=== PATIENT | male | born 1995 | race Caucasian/White ===

== ENCOUNTER 2016-05-19 01:24 | Emergency (ER) | payer BC, MEDICAID ==
[~2016-05-19] VITALS: Ht 177.8 cm; Wt 54.0 kg
[~2016-05-19 01:24] MED LIST: Z.0.NO CURRENT MEDS
[2016-05-19 01:25] VITALS: BP 138/76; PULSE 109; RESP 16; TEMP 98.2; O2SAT 96
[2016-05-19 03:26] LABS: AUTOMATED NEUTROPHIL # 3.7 TH/MM3 (1.8-7.7); BASOPHIL # 0.1 TH/MM3 (0-0.2); BASOPHIL % 0.7 % (0.0-2.0); EOSINOPHIL # 0.4 TH/MM3 (0-0.4); EOSINOPHIL % 5.2 % (0.0-4.0); HEMATOCRIT 42.2 % (39.0-51.0); HEMO FLAGS DIFF FINAL; LYMPH % 37.2 % (9.0-44.0); LYMPHOCYTE # 2.9 TH/MM3 (1.0-4.8); MEAN CELL VOLUME 91.3 FL (80.0-100.0); MEAN CORPUSCULAR HEMOGLOBIN 31.8 PG (27.0-34.0); MEAN CORPUSCULAR HGB CONC 34.8 % (32.0-36.0); MONO % 10.3 % (0.0-8.0); NEUT % 46.6 % (16.0-70.0); PLATELET COUNT 259 TH/MM3 (150-450); RED BLOOD COUNT 4.62 MIL/MM3 (4.50-5.90); RED CELL DISTRIBUTION WIDTH 12.9 % (11.6-17.2); WHITE BLOOD COUNT 7.9 TH/MM3 (4.0-11.0)
--- NOTE | 2016-05-19 03:28 | PD ---
HPI Chief Complaint: Suicide Ideation/Attempt Time Seen by Provider: 03:22 Travel History International Travel<30 days: No Contact w/Intl Traveler<30days: No Traveled to known affect area: No History of Present Illness HPI 20-year-old white male presents to emergency department under [place] act by PD. The patient has been increasingly depressed and has had attempted to hang himself the day before, overdose on alcohol and Klonopin. He presents today because of his persistent depression and suicidal ideation. He is accompanied by his significant other. He was just kicked out of his brother's home where he had been living. He has been staying in his girlfriends car. He denies any toxic ingestions today. He denies any suicide attempts today. He did perform suicide gesture cutting to his left forearm. The patient has a history of substance abuse. He's been taking alcohol, Xanax, cocaine and marijuana. PFSH Past Medical History Narrative Medical Asthma, anxiety, substance abuse Asthma: Yes Anxiety: Yes Diminished Hearing: No Immunizations Current: Yes Tetanus Vaccination: < 5 Years Influenza Vaccination: No Past Surgical History Tympanostomy Tube: Yes Social History Alcohol Use: Yes (occ) Tobacco Use: Yes (1/2 pack week) Substance Use: Yes (pot,xanax,cocaine) Allergies-Medications (Allergen,Severity, Reaction): Coded Allergies: No Known Allergies (Verified , 05/19/16) Reported Meds & Prescriptions Reported Meds & Active Scripts Active Reported No Current Meds (Miscellaneous Medication) Misc 0 Review of Systems Except as stated in HPI: all other systems reviewed are Neg Skin: Positive Other (suicide gesture cutting) Psychiatric: Positive: Anxiety, Depression, Suicidal Ideations, Mood Disorder, Substance Abuse, No: Disorder of Thought, Homicidal Ideation Physical Exam Narrative GENERAL: Well-nourished, well-developed patient. SKIN: Warm and dry. Patient has suicide gesture cutting. He has carved " anyone could help" on his left forearm HEAD: Normocephalic and atraumatic. EYES: No scleral icterus. No injection or drainage. ENT: No nasal drainage noted. Mucous membranes pink. Airway patent. NECK: Supple, trachea midline. Moves head freely without obvious discomfort. CARDIOVASCULAR: Regular rate and rhythm without murmurs, gallops, or rubs. RESPIRATORY: Breath sounds equal bilaterally. No accessory muscle use. GASTROINTESTINAL: Abdomen soft, non-tender, nondistended. EXTREMITIES: No cyanosis or edema. BACK: Nontender without obvious deformity. No CVA tenderness. NEURO: Patient is alert and oriented. no sensorimotor deficits. Nonfocal. Normal speech. PSYCH: No delusions. No auditory or visual hallucinations. Data Data Last Documented VS Vital Signs Date Time Temp Pulse Resp B/P Pulse Ox O2 Delivery O2 Flow Rate FiO2 05/19/16 01:25 98.2 109 16 138/76 96 Room Air Orders Complete Blood Count With Diff (05/19/16 02:45) Comprehensive Metabolic Panel (05/19/16 02:45) Drug Screen, Random Urine (05/19/16 02:45) Alcohol (Ethanol) (05/19/16 02:45) Salicylates (Aspirin) (05/19/16 02:45) Tylenol (Acetaminophen) (05/19/16 02:45) Psych Screen (05/19/16 02:45) Labs Laboratory Tests Test 05/19/16 05/19/16 03:00 03:10 White Blood Count 7.9 TH/MM3 Red Blood Count 4.62 MIL/MM3 Hemoglobin 14.7 GM/DL Hematocrit 42.2 % Mean Corpuscular Volume 91.3 FL Mean Corpuscular Hemoglobin 31.8 PG Mean Corpuscular Hemoglobin 34.8 % Concent Red Cell Distribution Width 12.9 % Platelet Count 259 TH/MM3 Mean Platelet Volume 8.0 FL Neutrophils (%) (Auto) 46.6 % Lymphocytes (%) (Auto) 37.2 % Monocytes (%) (Auto) 10.3 % Eosinophils (%) (Auto) 5.2 % Basophils (%) (Auto) 0.7 % Neutrophils # (Auto) 3.7 TH/MM3 Lymphocytes # (Auto) 2.9 TH/MM3 Monocytes # (Auto) 0.8 TH/MM3 Eosinophils # (Auto) 0.4 TH/MM3 Basophils # (Auto) 0.1 TH/MM3 CBC Comment DIFF FINAL Differential Comment Sodium Level 140 MEQ/L Potassium Level 3.4 MEQ/L Chloride Level 103 MEQ/L Carbon Dioxide Level 29.0 MEQ/L Anion Gap 8 MEQ/L Blood Urea Nitrogen 17 MG/DL Creatinine 1.06 MG/DL Estimat Glomerular Filtration 90 ML/MIN Rate Random Glucose 126 MG/DL Calcium Level 8.9 MG/DL Total Bilirubin 0.7 MG/DL Aspartate Amino Transf 12 U/L (AST/SGOT) Alanine Aminotransferase 17 U/L (ALT/SGPT) Alkaline Phosphatase 99 U/L Total Protein 7.5 GM/DL Albumin 4.3 GM/DL Salicylates Level 3.7 MG/DL Acetaminophen Level LESS THAN 2.0 MCG/ML Ethyl Alcohol Level LESS THAN 3 MG/DL Urine Opiates Screen NEG Urine Barbiturates Screen NEG Urine Amphetamines Screen NEG Urine Benzodiazepines Screen POS Urine Cocaine Screen POS Urine Cannabinoids Screen POS MDM Medical Decision Making Medical Screen Exam Complete: Yes Emergency Medical Condition: Yes Medical Record Reviewed: Yes Interpretation(s) Laboratory Tests Test 05/19/16 05/19/16 03:00 03:10 White Blood Count 7.9 TH/MM3 Red Blood Count 4.62 MIL/MM3 Hemoglobin 14.7 GM/DL Hematocrit 42.2 % Mean Corpuscular Volume 91.3 FL Mean Corpuscular Hemoglobin 31.8 PG Mean Corpuscular Hemoglobin 34.8 % Concent Red Cell Distribution Width 12.9 % Platelet Count 259 TH/MM3 Mean Platelet Volume 8.0 FL Neutrophils (%) (Auto) 46.6 % Lymphocytes (%) (Auto) 37.2 % Monocytes (%) (Auto) 10.3 % Eosinophils (%) (Auto) 5.2 % Basophils (%) (Auto) 0.7 % Neutrophils # (Auto) 3.7 TH/MM3 Lymphocytes # (Auto) 2.9 TH/MM3 Monocytes # (Auto) 0.8 TH/MM3 Eosinophils # (Auto) 0.4 TH/MM3 Basophils # (Auto) 0.1 TH/MM3 CBC Comment DIFF FINAL Differential Comment Sodium Level 140 MEQ/L Potassium Level 3.4 MEQ/L Chloride Level 103 MEQ/L Carbon Dioxide Level 29.0 MEQ/L Anion Gap 8 MEQ/L Blood Urea Nitrogen 17 MG/DL Creatinine 1.06 MG/DL Estimat Glomerular Filtration 90 ML/MIN Rate Random Glucose 126 MG/DL Calcium Level 8.9 MG/DL Total Bilirubin 0.7 MG/DL Aspartate Amino Transf 12 U/L (AST/SGOT) Alanine Aminotransferase 17 U/L (ALT/SGPT) Alkaline Phosphatase 99 U/L Total Protein 7.5 GM/DL Albumin 4.3 GM/DL Salicylates Level 3.7 MG/DL Acetaminophen Level LESS THAN 2.0 MCG/ML Ethyl Alcohol Level LESS THAN 3 MG/DL Urine Opiates Screen NEG Urine Barbiturates Screen NEG Urine Amphetamines Screen NEG Urine Benzodiazepines Screen POS Urine Cocaine Screen POS Urine Cannabinoids Screen POS Differential Diagnosis MDM: High Differential diagnoses: Schizophrenia, schizoaffective disorder, bipolar, anxiety, depression, adjustment reaction, mood disorder NOS, ODD, depressive disorder NOS, dementia, dementia with agitation, psychosis NOS, substance induced mood disorder, intermittent explosive disorder, Asperger syndrome, infection,electrolyte abnormality, malingering. Narrative Course Mental health screening discussed with the patient. Psychiatric screen ordered. Diagnosis Primary Impression: Substance induced mood disorder Condition: Stable Arnaud Garcia May 19, 2016 03:28
[2016-05-19 03:31] LABS: AMPHETAMINE, URINE NEG (NEG); BARBITURATES, URINE NEG (NEG); COCAINE, URINE POS (NEG)
[2016-05-19 03:35] LABS: ALT (GPT) 17 U/L (9-52); ANION GAP 8 MEQ/L (5-15); AST (GOT) 12 U/L (15-39); BLOOD UREA NITROGEN 17 MG/DL (7-18); CHLORIDE 103 MEQ/L (98-107); GLOMERULAR FILTRATION RATE 90 ML/MIN (>89); POTASSIUM 3.4 MEQ/L (3.5-5.1); SODIUM (NA) 140 MEQ/L (136-145)
[2016-05-19 03:37] LABS: ALKALINE PHOSPHATASE 99 U/L (45-117); TOTAL BILIRUBIN ADULT 0.7 MG/DL (0.2-1.0)
[2016-05-19 03:48] LABS: ACETAMINOPHEN LESS THAN 2.0 MCG/ML (10.0-30.0)
[2016-05-19 12:50] VITALS: BP 120/78; PULSE 77; RESP 18; TEMP 98.4; O2SAT 100
[2016-05-19 17:53] VITALS: BP 120/78; PULSE 77; RESP 18; O2SAT 100
== END 2016-05-19 17:55 | disposition home or self-care (01) ==
LOC: NEPA 01:24 → NEPJ 17:55
DX: F14.94 Cocaine use, unspecified with cocaine-induced mood disorder (principal); F13.94 Sedative, hypnotic or anxiolytic use, unspecified with sedative, hypnotic or anxiolytic-induced mood disorder
CPT/HCPCS: 80053; 80307; 80320; 80329; 85025; 99283; G0480

== ENCOUNTER 2016-07-05 22:51 | Emergency (ER) | payer MEDICAID ==
[~2016-07-05] VITALS: Ht 177.8 cm; Wt 61.9 kg
[2016-07-05 22:58] VITALS: BP 115/85; PULSE 96; RESP 18; TEMP 98.6; O2SAT 97
--- NOTE | 2016-07-05 23:21 | PD ---
HPI . Abdominal pain Chief Complaint: Abdominal Pain Time Seen by Provider: 23:12 Travel History International Travel<30 days: No Contact w/Intl Traveler<30days: No Traveled to known affect area: No History of Present Illness HPI Patient presents with about a 3 day history of upper abdominal pain. He describes it as a burning sensation. Pain is exacerbated by eating. He reports nausea but no vomiting. He does state that he has loose stools. He denies any urinary tract symptoms such as dysuria, frequency or urgency. He has not been running a fever. He denies any previous similar history. He states that he has taken Tums X 1 with no relief in his symptoms. PFSH Past Medical History Asthma: Yes Anxiety: Yes Diminished Hearing: No Immunizations Current: Yes Tetanus Vaccination: > 5 Years Influenza Vaccination: No Past Surgical History Tympanostomy Tube: Yes Social History Alcohol Use: Yes (SOCIALLY) Tobacco Use: Yes (05/11 PPD) Substance Use: Yes (MARIJUANA) Allergies-Medications (Allergen,Severity, Reaction): Coded Allergies: No Known Allergies (Verified , 07/05/16) Reported Meds & Prescriptions Reported Meds & Active Scripts Active Phenergan (Promethazine HCl) 25 Mg Tab 25 Mg PO Q6H PRN Prilosec (Omeprazole) 20 Mg Cap 20 Mg PO DAILY Reported No Current Meds (Miscellaneous Medication) Misc 0 Review of Systems Except as stated in HPI: all other systems reviewed are Neg General / Constitutional: No: Fever, Chills Gastrointestinal: Positive: Nausea, Diarrhea, Abdominal Pain, No: Vomiting Genitourinary: No: Urgency, Frequency, Dysuria Psychiatric: Positive: Anxiety Physical Exam Narrative GENERAL: Thin young man who is awake and alert and in no acute distress. SKIN: Warm and dry. HEAD: Atraumatic. Normocephalic. EYES: Pupils equal and round. ENT: No nasal bleeding or discharge. Mucous membranes pink and moist. NECK: Trachea midline. Neck is supple. CARDIOVASCULAR: Regular rate and rhythm. Heart sounds are normal. RESPIRATORY: No accessory muscle use. Lungs are clear with full air movement throughout. GASTROINTESTINAL: Abdomen soft. Epigastric tenderness. No right upper quadrant tenderness. Nondistended. Normal bowel sounds. MUSCULOSKELETAL: No obvious deformities. No edema. NEUROLOGICAL: Awake and alert. No obvious cranial nerve deficits. Motor grossly within normal limits. Normal speech. PSYCHIATRIC: Appropriate mood and affect; insight and judgment normal. Data Data Last Documented VS Vital Signs Date Time Temp Pulse Resp B/P Pulse Ox O2 Delivery O2 Flow Rate FiO2 07/05/16 23:56 20 07/05/16 22:58 98.6 96 115/85 97 Orders Complete Blood Count With Diff (07/05/16 23:17) Comprehensive Metabolic Panel (07/05/16 23:17) Lipase (07/05/16 23:17) Iv Access Insert/Monitor (07/05/16 23:17) Morphine Inj (Morphine Inj) (07/05/16 23:30) Ondansetron Inj (Zofran Inj) (07/05/16 23:30) Pantoprazole Inj (Protonix Inj) (07/05/16 23:30) Sodium Chloride 0.9% Flush (Ns Flush) (07/05/16 23:30) Al-Mag Hy-Si 40-40-4 Mg/Ml Liq (Mag-Al P (07/05/16 23:30) Lidocaine 2% Viscous (Xylocaine 2% Visco (07/05/16 23:30) Labs Laboratory Tests Test 07/05/16 23:30 White Blood Count 8.8 TH/MM3 Red Blood Count 4.42 MIL/MM3 Hemoglobin 14.2 GM/DL Hematocrit 41.2 % Mean Corpuscular Volume 93.3 FL Mean Corpuscular Hemoglobin 32.2 PG Mean Corpuscular Hemoglobin 34.5 % Concent Red Cell Distribution Width 12.5 % Platelet Count 223 TH/MM3 Mean Platelet Volume 7.8 FL Neutrophils (%) (Auto) 66.2 % Lymphocytes (%) (Auto) 23.5 % Monocytes (%) (Auto) 7.5 % Eosinophils (%) (Auto) 2.1 % Basophils (%) (Auto) 0.7 % Neutrophils # (Auto) 5.7 TH/MM3 Lymphocytes # (Auto) 2.1 TH/MM3 Monocytes # (Auto) 0.7 TH/MM3 Eosinophils # (Auto) 0.2 TH/MM3 Basophils # (Auto) 0.1 TH/MM3 CBC Comment DIFF FINAL Differential Comment Sodium Level 141 MEQ/L Potassium Level 3.1 MEQ/L Chloride Level 103 MEQ/L Carbon Dioxide Level 30.5 MEQ/L Anion Gap 8 MEQ/L Blood Urea Nitrogen 5 MG/DL Creatinine 0.87 MG/DL Estimat Glomerular Filtration 113 ML/MIN Rate Random Glucose 129 MG/DL Calcium Level 8.5 MG/DL Total Bilirubin 0.4 MG/DL Aspartate Amino Transf 12 U/L (AST/SGOT) Alanine Aminotransferase 19 U/L (ALT/SGPT) Alkaline Phosphatase 92 U/L Total Protein 7.1 GM/DL Albumin 3.7 GM/DL Lipase 115 U/L MDM Medical Decision Making Medical Screen Exam Complete: Yes Emergency Medical Condition: Yes Differential Diagnosis Differential diagnosis of abdominal pain includes but is not limited to gastritis, pancreatitis, hepatitis, gastroenteritis, gallbladder disease, constipation, urinary retention, UTI, peptic ulcer disease, diverticulitis or appendicitis Narrative Course Patient presents for evaluation and treatment of epigastric abdominal pain. He describes burning. I have ordered IV Protonix and GI cocktail. I have also ordered morphine and Zofran. I have not ordered any imaging studies. I am not concerned about appendicitis or diverticulitis. CBC & BMP Diagram 07/05/16 23:30 His LFTs are normal. Lipase is normal. I suspect peptic ulcer disease or gastritis. It is most likely peptic ulcer disease since it is exacerbated by eating. Diagnosis Primary Impression: Epigastric pain Additional Impression: Hypokalemia Referrals: Cristel Dowd MD 1 week Patient Instructions: Epigastric Pain (ED), General Instructions Med/Other Pt SpecificInfo: Prescription(s) given Scripts Potassium Chloride ER 20 Meq Tab40 Meq PO BID 5 Days Ref 0 Prov:Ivone Farris MD 07/06/16 Promethazine (Phenergan)25 Mg Tab25 Mg PO Q6H PRN (Nausea/Vomiting) #10 TAB Ref 0 Prov:Ivone Farris MD 07/05/16 Omeprazole (Prilosec)20 Mg Cap20 Mg PO DAILY #30 CAP Ref 0 Prov:Ivone Farris MD 07/05/16 Disposition: 01 DISCHARGE HOME Condition: Stable Ivone Farris MD Jul 05, 2016 23:21
[2016-07-05] MEDS ORDERED: LIDOCAINE VISCOUS 2% SOLN 15 ML UDC PO ONE (23:30)
[2016-07-05] MEDS ORDERED: ONDANSETRON HCL 4 MG/2 ML VIAL IVP ONE (23:30)
[2016-07-05] MEDS ORDERED: MORPHINE SULFATE 4 MG/ML INJ IV PUSH ONE (23:30)
[2016-07-05] MEDS ORDERED: SODIUM CHLORIDE 0.9% FLUSH 5 ML FLUSH IVF PRN (23:30)
[2016-07-05] MEDS ORDERED: ALUMINUM/MAGNESIUM/SIMETH 30 ML CUP PO ONE (23:30)
[2016-07-05] MEDS ORDERED: PANTOPRAZOLE SODIUM 40 MG VIAL IVP ONE (23:30)
[2016-07-05 23:39] LABS: AUTOMATED NEUTROPHIL # 5.7 TH/MM3 (1.8-7.7); BASOPHIL # 0.1 TH/MM3 (0-0.2); BASOPHIL % 0.7 % (0.0-2.0); EOSINOPHIL # 0.2 TH/MM3 (0-0.4); EOSINOPHIL % 2.1 % (0.0-4.0); HEMATOCRIT 41.2 % (39.0-51.0); HEMO FLAGS DIFF FINAL; LYMPH % 23.5 % (9.0-44.0); LYMPHOCYTE # 2.1 TH/MM3 (1.0-4.8); MEAN CELL VOLUME 93.3 FL (80.0-100.0); MEAN CORPUSCULAR HEMOGLOBIN 32.2 PG (27.0-34.0); MEAN CORPUSCULAR HGB CONC 34.5 % (32.0-36.0); MONO % 7.5 % (0.0-8.0); NEUT % 66.2 % (16.0-70.0); PLATELET COUNT 223 TH/MM3 (150-450); RED BLOOD COUNT 4.42 MIL/MM3 (4.50-5.90); RED CELL DISTRIBUTION WIDTH 12.5 % (11.6-17.2); WHITE BLOOD COUNT 8.8 TH/MM3 (4.0-11.0)
[2016-07-05] MEDS ORDERED: PRIL20CA9 PO (23:45)
[2016-07-05] MEDS ORDERED: PROM25TA5 PO (23:45)
[2016-07-05 23:49] LABS: CHLORIDE 103 MEQ/L (98-107); POTASSIUM 3.1 MEQ/L (3.5-5.1); SODIUM (NA) 141 MEQ/L (136-145)
[2016-07-05 23:53] LABS: ANION GAP 8 MEQ/L (5-15); BICARBONATE 30.5 MEQ/L (21.0-32.0); BLOOD UREA NITROGEN 5 MG/DL (7-18)
[2016-07-05 23:56] LABS: ALT (GPT) 19 U/L (9-52); AST (GOT) 12 U/L (15-39); GLOMERULAR FILTRATION RATE 113 ML/MIN (>89)
[2016-07-05 23:57] LABS: TOTAL BILIRUBIN ADULT 0.4 MG/DL (0.2-1.0)
[2016-07-05 23:59] LABS: ALKALINE PHOSPHATASE 92 U/L (45-117)
[2016-07-06] MEDS ORDERED: POTA-163 PO (00:02)
[2016-07-06 00:50] VITALS: BP 119/73
== END 2016-07-06 01:04 | disposition home or self-care (01) ==
LOC: PHED 22:51
DX: R10.13 Epigastric pain (principal); E87.6 Hypokalemia
CPT/HCPCS: 80053; 83690; 85025; 96374; 96375; 99284; C9113; J2270; J2405